=== PATIENT | female | born 1970 | race Caucasian/White ===

== ENCOUNTER 2016-07-31 14:07 | Emergency (ER) | payer MEDICARE, MEDICAID ==
--- NOTE | 2016-07-31 14:26 | Emergency Department Record ---
History of Present Illness - General Chief Complaint: Chest Pain Stated Complaint: CHEST PAIN Time Seen by Provider: 07/31/16 14:19 Source: Patient Mode of Arrival: Wheelchair Limitations: No limitations - History of Present Illness Initial Comments: 45 yo female presents to ED with a CC of "sharp" chest pain that began approximately 2-3 days ago. Patient reports that her pain has been constant for 2 days, and is improving. Patient denies fevers, chills, or cough symptoms , denies lower extremity swelling or calf-pain symptoms, denies previous history of DVT. Patient denies health problems other than HTN, does smoke. 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 MD Complaint: Chest pain Onset/Timin -: Days(s) Onset: Other Pain Location: Left chest Pain Radiation: LUE, Jaw/teeth Severity scale (1-10): 8 Quality: Sharp Consistency: Constant Improves With: Nothing Worsens With: Nothing Anginal Symptoms: Nausea Treatments Prior to Arrival: None - Related Data Home Medications Medication Instructions Recorded Confirmed Last Taken Alprazolam [Xanax] 0.25 mg PO Q8H PRN 01/16/16 07/31/16 1 Day Ago ~01/15/16 Aripiprazole [Abilify] 10 mg PO DAILY 01/16/16 07/31/16 07/31/16 Fluoxetine HCl [Prozac] 60 mg PO DAILY 01/16/16 07/31/16 07/31/16 Pregabalin [Lyrica] 150 mg PO BID 01/16/16 07/31/16 07/31/16 Allergies Allergy/AdvReac Type Severity Reaction Status Date / Time No Known Drug Allergies Allergy Verified 07/31/16 14:11 Travel Screening - Travel/Exposure Within Last 30 Days Have you traveled within the last 30 days?: No Review of Systems Constitutional: Denies: Chills, Fever, Malaise, Night sweats Eyes: Denies: Eye discharge, Eye pain ENT: Denies: Congestion, Ear pain, Epistaxis Respiratory: Denies: Cough, Dyspnea Cardiovascular: Reports: Chest pain. Denies: Dyspnea on exertion, Palpitations Endocrine: Denies: Fatigue, Heat or cold intolerance Gastrointestinal: Denies: Abdominal pain, Nausea, Vomiting Genitourinary: Denies: Dysuria, Hematuria, Incontinence Musculoskeletal: Denies: Arthralgia, Back pain, Gout, Joint swelling Skin: Denies: Bruising, Change in color Neurological: Denies: Abnormal gait, Confusion, Headache, Seizure Psychiatric: Denies: Anxiety Hematological/Lymphatic: Denies: Anemia, Blood Clots Past Medical History - SOCIAL HISTORY Smoking Status: Current every day smoker Alcohol Use: Occassional Drug Use: None - RESPIRATORY Hx Respiratory Disorders: No - CARDIOVASCULAR Hx Cardio Disorders: Yes Hx Abnormal EKG: Yes Hx Cardiac Cath: Yes (occluder placed 12/2013) Hx Hypertension: Yes Hx Irregular Heartbeat: Yes Comment:: murmur, septal defect - NEURO Hx Neuro Disorders: Yes Hx Headaches: Yes - GI Hx GI Disorders: No - Hx Genitourinary Disorders: No - ENDOCRINE Hx Endocrine Disorders: No - MUSCULOSKELETAL Hx Musculoskeletal Disorders: Yes Hx Arthritis: Yes Hx Fibromyalgia: Yes - PSYCH Hx Anxiety: Yes Hx Depression: Yes - HEMATOLOGY/ONCOLOGY Hx Hematology/Oncology Disorders: No Family Medical History Any Significant Family History?: Yes Hx Heart Disease: Mother *Heart Comment: mother with same Hx HTN: Grandparents Physical Exam - General General Appearance: Alert, Oriented x3, Cooperative, No acute distress Limitations: No limitations - Head Head exam: Atraumatic, Normocephalic, Normal inspection Head exam detail: negative: Abrasion, Contusion, Reyez's sign, General tenderness, Hematoma, Laceration - Eye Eye exam: Normal appearance. negative: Conjunctival injection, Periorbital swelling, Periorbital tenderness, Scleral icterus - ENT Ear exam: negative: Auricular hematoma, Auricular trauma Nasal Exam: negative: Active bleeding, Discharge, Dried blood, Foreign body Mouth exam: negative: Drooling, Laceration, Muffled voice, Tongue elevation - Neck Neck exam: Normal inspection. negative: Meningismus, Tenderness - Respiratory Respiratory exam: Normal lung sounds bilaterally. negative: Rales, Respiratory distress, Rhonchi, Stridor - Cardiovascular Cardiovascular Exam: Regular rate, Normal rhythm, Normal heart sounds - GI/Abdominal GI/Abdominal exam: Soft. negative: Rebound, Rigid, Tenderness - Rectal Rectal exam: Deferred - exam: Deferred - Extremities Extremities exam: Normal inspection. negative: Calf tenderness, Pedal edema, Tenderness - Back Back exam: Denies: CVA tenderness (R), CVA tenderness (L) - Neurological Neurological exam: Alert, Normal gait, Oriented X3 - Psychiatric Psychiatric exam: Flat affect, Normal mood - Skin Skin exam: Normal color. negative: Abrasion Type of lesion: negative: abrasion Course Vital Signs 07/31/16 14:08 Temperature 98.4 F Pulse Rate 97 H Respiratory 20 Rate Blood Pressure 141/100 Pulse Ox 78 L - Reevaluation(s) Reevaluation #1: 07/31/16 14:20 EKG: NSR 73 Normal axis, normal intervals No acute ST-T wave changes Reevaluation #2: 07/31/16 15:13 Labs reviewed and are grossly unremarkable for an acute process. Will plan for repeat Troponin in 4 hours. CXR reviewed and appears negative for any acute process. Will plan for 3-hour Troponin per HEART protocol to exclude acute myocardial injury. Patient resting comfortably and agrees with plan as discussed. Reevaluation #3: 07/31/16 17:48 Repeat Troponin resulted and is normal. Patient updated on result, and appears stable for discharge at this time with outpatient stress testing. Medical Decision Making - Lab Data Result diagrams: 07/31/16 14:10 07/31/16 14:10 Disposition Disposition: Discharge Clinical Impression: Chest pain Qualifiers: Chest pain type: unspecified Qualified Code(s): R07.9 - Chest pain, unspecified Disposition: Home, Self-Care Condition: (2) Stable Instructions: Chest Pain (ED) Additional Instructions: Return to ED if your symptoms worsen or if you have any concerns. Follow-up with Dr. Gamble in 1-3 days for further cardiac stress testing. Forms: Patient Portal Access Time of Disposition: 17:48
[2016-07-31] MEDS ORDERED: ASPIRIN 81 MG CHEWABLE TABLET PO ONE (14:29)
[2016-07-31 14:38] LABS: BASO % 0.6 % (0-6); EOS % 0.6 % (0-6); GRAN % 61.1 % (47-80); HEMATOCRIT 40.2 % (35.0-47.0); HEMOGLOBIN 13.8 gm/dl (11.6-16.0); LYMPH % 29.7 % (16-45); MEAN CELL VOLUME 101.5 fl (81-97); MEAN CORPUSCULAR HEMOGLOBIN 34.8 pg (27-33); MEAN CORPUSCULAR HGB CONC 34.3 g/dl (32-36); MEAN PLATELET VOLUME 10.4 fl (7.4-10.4); PLATELET COUNT 234 K/uL (130-400); RED BLOOD COUNT 3.96 M/uL (3.80-5.40); RED CELL DISTRIBUTION WIDTH 12.4 % (11.5-14.5)
[2016-07-31 14:54] LABS: ALB/GLOB RATIO 1.8 (1.1-1.8); ALBUMIN 4.4 gm/dL (3.5-5.0); ALKALINE PHOSPHATASE 85 U/L (38-126); ALT/SGPT 26 U/L (9-52); ANION GAP 6.9 (7-16); AST/SGOT 20 U/L (14-36); BILIRUBIN,TOTAL 0.62 mg/dL (0.2-1.3); BLOOD UREA NITROGEN 11 mg/dL (7-17); CARBON DIOXIDE 23.1 mmol/L (22-30); CREATINE PHOSPHOKINASE 105 U/L (30-135); CREATININE 0.8 mg/dL (0.52-1.04); EST GLOMERULAR FILTRATION RATE > 60 ml/min; GLUCOSE,RANDOM 92 mg/dL (70-110); TOTAL PROTEIN 6.9 gm/dL (6.3-8.2)
[2016-07-31 15:06] LABS: CKMB 2.4 ng/mL (0-4.3); TROPONIN I < 0.012 ng/mL (0.00-0.034)
== END 2016-07-31 18:03 | disposition home or self-care (01) ==
LOC: ER 14:07
DX: R07.9 Chest pain, unspecified (principal); R11.0 Nausea; R68.84 Jaw pain; R51 Headache; I10 Essential (primary) hypertension; F17.210 Nicotine dependence, cigarettes, uncomplicated
CPT/HCPCS: 71020; 80053; 82550; 82553; 84484; 85025; 85379; 93005; 93010; 99284

== ENCOUNTER 2017-12-12 12:16 | Emergency (ER) | payer MEDICARE, MEDICAID ==
[2017-12-12] MEDS ORDERED: ASPIRIN 81 MG CHEWABLE TABLET PO ONE (12:22)
[2017-12-12 12:31] LABS: BASO % 0.7 % (0-6); EOS % 0.3 % (0-6); GRAN % 56.8 % (47-80); HEMATOCRIT 42.7 % (35.0-47.0); HEMOGLOBIN 14.4 gm/dl (11.6-16.0); LYMPH % 32.8 % (16-45); MEAN CELL VOLUME 102.9 fl (81-97); MEAN CORPUSCULAR HEMOGLOBIN 34.7 pg (27-33); MEAN CORPUSCULAR HGB CONC 33.7 g/dl (32-36); MEAN PLATELET VOLUME 9.7 fl (7.4-10.4); MONO % 9.4 % (0-9); PLATELET COUNT 291 K/uL (130-400); RED BLOOD COUNT 4.15 M/uL (3.80-5.40); RED CELL DISTRIBUTION WIDTH 13.6 % (11.5-14.5); WHITE BLOOD COUNT W/O DIFF 5.8 K/uL (4.2-12.2)
[2017-12-12] MEDS ORDERED: NITROGLYCERIN 0.4MG SL TABLET #25 BTL SL ONE (12:35)
[2017-12-12 12:41] LABS: BLOOD UREA NITROGEN 9 mg/dL (6-20); CREATININE 0.6 mg/dL (0.5-0.9); EST GLOMERULAR FILTRATION RATE > 60 mL/min
[2017-12-12 12:44] LABS: GLUCOSE,RANDOM 121 mg/dL (74-109)
[2017-12-12 12:47] LABS: CREATINE PHOSPHOKINASE 91 U/L (26-192)
[2017-12-12] MEDS: NITROGLYCERIN 0.4MG SL TABLET #25 BTL SL PRN ×2 (12:48→12:55)
--- NOTE | 2017-12-12 12:48 | Emergency Department Record ---
History of Present Illness - General Chief Complaint: Chest Pain Stated Complaint: CHEST PAIN Time Seen by Provider: 12/12/17 12:18 Source: Patient Mode of Arrival: Ambulatory Limitations: No limitations - History of Present Illness Initial Comments: pt has had constant cp since 7am that is sharp and radiates to her l arm. she has nausea. she also had cp yesterday that was worse. MD Complaint: Chest pain Onset/Timin -: Hour(s) Onset: Awoke with symptoms Pain Location: Left chest Severity scale (1-10): 7 Quality: Heaviness, Sharp Consistency: Constant Improves With: Nothing Worsens With: Nothing Anginal Symptoms: Nausea Treatments Prior to Arrival: None - Related Data Home Medications Medication Instructions Recorded Confirmed Last Taken Amlodipine Besylate [Norvasc] 5 mg PO DAILY 12/12/17 12/12/17 12/12/17 Losartan Potassium 50 mg PO DAILY 12/12/17 12/12/17 12/12/17 Allergies Allergy/AdvReac Type Severity Reaction Status Date / Time No Known Drug Allergies Allergy Verified 07/31/16 14:11 Travel Screening - Travel/Exposure Within Last 30 Days Have you traveled within the last 30 days?: No - Travel/Exposure Within Last Year Have you traveled outside the [place] in the last year?: No - Additonal Travel Details Have you been exposed to anyone with a communicable illness?: No - Travel Symptoms Symptom Screening: None Review of Systems Reviewed: No additional complaints except as noted below Constitutional: Reports: As per HPI. Denies: Chills, Fever, Malaise, Night sweats, Weakness, Weight change Eyes: Reports: As per HPI. Denies: Eye discharge, Eye pain, Photophobia, Vision change ENT: Reports: As per HPI. Denies: Congestion, Dental pain, Ear pain, Epistaxis , Hearing loss, Throat pain Respiratory: Reports: As per HPI. Denies: Cough, Dyspnea, Hemoptysis, Stridor, Wheezes Cardiovascular: Reports: As per HPI. Denies: Arrhythmia, Chest pain, Dyspnea on exertion, Edema, Murmurs, Orthopnea, Palpitations, Paroxysmal nocturnal dyspnea, Rheumatic Fever, Syncope Endocrine: Reports: As per HPI. Denies: Fatigue, Heat or cold intolerance, Polydipsia, Polyuria Gastrointestinal: Reports: As per HPI. Denies: Abdominal pain, Constipation, Diarrhea, Hematemesis, Hematochezia, Melena, Nausea, Vomiting Genitourinary: Reports: As per HPI. Denies: Abnormal menses, Discharge, Dyspareunia, Dysuria, Frequency, Hematuria, Incontinence, Retention, Urgency Musculoskeletal: Reports: As per HPI. Denies: Arthralgia, Back pain, Gout, Joint swelling, Myalgia, Neck pain Skin: Reports: As per HPI. Denies: Bruising, Change in color, Change in hair/ nails, Lesions, Pruritus, Rash Neurological: Reports: As per HPI. Denies: Abnormal gait, Confusion, Headache, Numbness, Paresthesias, Seizure, Tingling, Tremors, Vertigo, Weakness Psychiatric: Reports: As per HPI. Denies: Anxiety, Auditory hallucinations, Depression, Homicidal thoughts, Suicidal thoughts, Visual hallucinations Hematological/Lymphatic: Reports: As per HPI. Denies: Anemia, Blood Clots, Easy bleeding, Easy bruising, Swollen glands Past Medical History - SOCIAL HISTORY Smoking Status: Light tobacco smoker (<10/day) Alcohol Use: Occasional Drug Use: Rare Drug Use Detail:: Marijuana - RESPIRATORY Hx Respiratory Disorders: No - CARDIOVASCULAR Hx Cardio Disorders: Yes Hx Abnormal EKG: Yes Hx Cardiac Cath: Yes (occluder placed 12/2013) Hx Hypertension: Yes Hx Irregular Heartbeat: Yes Comment:: murmur, septal defect - NEURO Hx Neuro Disorders: Yes Hx Headaches: Yes - GI Hx GI Disorders: No - Hx Genitourinary Disorders: No - ENDOCRINE Hx Endocrine Disorders: No Hx Diabetes: No Hx Thyroid Disease: No - MUSCULOSKELETAL Hx Musculoskeletal Disorders: Yes Hx Arthritis: Yes Hx Fibromyalgia: Yes - PSYCH Hx Psych Problems: Yes Hx Anxiety: Yes Hx Depression: Yes - HEMATOLOGY/ONCOLOGY Hx Hematology/Oncology Disorders: No Hx Anemia: No Hx Blood Disorders: No Hx Bruising: No Hx Cancer: No Family Medical History Any Significant Family History?: No Hx Heart Disease: Mother *Heart Comment: mother with same Hx HTN: Grandparents Physical Exam - General General Appearance: Alert, Oriented x3, Cooperative, Mild distress - Head Head exam: Normal inspection - Eye Eye exam: Normal appearance, PERRL, EOMI Pupils: Normal accommodation - ENT ENT exam: Normal exam, Mucous membranes moist, Normal external ear exam, Normal orophraynx Ear exam: Normal external inspection. negative: External canal tenderness Nasal Exam: Normal inspection. negative: Discharge, Sinus tenderness Mouth exam: Normal external inspection, Tongue normal Teeth exam: Normal inspection. negative: Dental caries Throat exam: Normal inspection. negative: Tonsillar erythema, Tonsillar exudate - Neck Neck exam: Normal inspection, Full ROM. negative: Tenderness - Respiratory Respiratory exam: Normal lung sounds bilaterally. negative: Respiratory distress - Cardiovascular Cardiovascular Exam: Regular rate, Normal rhythm, Normal heart sounds - GI/Abdominal GI/Abdominal exam: Soft, Normal bowel sounds. negative: Tenderness - Rectal Rectal exam: Deferred - exam: Deferred - Extremities Extremities exam: Normal inspection, Full ROM, Normal capillary refill. negative: Tenderness - Back Back exam: Reports: Normal inspection, Full ROM. Denies: Muscle spasm, Rash noted, Tenderness - Neurological Neurological exam: Alert, CN II-XII intact, Normal gait, Oriented X3 - Psychiatric Psychiatric exam: Normal affect, Normal mood - Skin Skin exam: Dry, Intact, Normal color, Warm Course Vital Signs 12/12/17 12/12/17 12:27 12:42 Temperature 98.5 F Pulse Rate [ 85 85 Pulse Ox Probe] Respiratory 16 Rate Blood Pressure 140/98 120/98 [Right Arm] Pulse Ox 100 99 - Reevaluation(s) Reevaluation #1: 12/12/17 15:27 ntg relieved pain Reevaluation #2: 12/12/17 15:27 d/w dr cleary Medical Decision Making - Lab Data Result diagrams: 12/12/17 12:20 12/12/17 12:20 Lab Results 12/12/17 Range/Units 12:20 WBC 5.8 (4.2-12.2) K/uL RBC 4.15 (3.80-5.40) M/uL Hgb 14.4 (11.6-16.0) gm/dl Hct 42.7 (35.0-47.0) % MCV 102.9 H (81-97) fl MCH 34.7 H (27-33) pg MCHC 33.7 (32-36) g/dl RDW 13.6 (11.5-14.5) % Plt Count 291 (130-400) K/uL MPV 9.7 (7.4-10.4) fl Gran % 56.8 (47-80) % Lymphocytes % 32.8 (16-45) % Monocytes % 9.4 H (0-9) % Eosinophils % 0.3 (0-6) % Basophils % 0.7 (0-6) % Disposition Disposition: Transfer Clinical Impression: Chest pain Qualifiers: Chest pain type: unspecified Qualified Code(s): R07.9 - Chest pain, unspecified Disposition: Acute Care Hospital Transfer Transfer To: [facility] Reason For Transfer: cp, needs commercial insurance underwriter Accepting Physician: dr jack Time Discussed w/Accepting Physician: 15:56 Forms: Patient Portal Access Quality - Quality Measures Quality Measures: N/A - Blood Pressure Screening Does Patient Have Any of the Following: No Blood Pressure Classification: Hypertensive Reading Systolic Measurement: 130 Diastolic Measurement: 106 Screening for High Blood Pressure: < Pre-Hypertensive BP, F/U Documented > [ G8950] Pre-Hypertensive Follow-up Interventions: Follow-up with rescreen every year.
[2017-12-12 12:49] LABS: CKMB 3.2 ng/mL (<3.77)
[2017-12-12] MEDS ORDERED: ONDANSETRON HCL IV 4 MG/2 ML VIAL IVP ONE (14:26)
== END 2017-12-12 17:12 | disposition short-term general hospital (02) ==
LOC: ER 12:16
DX: R07.9 Chest pain, unspecified (principal); I10 Essential (primary) hypertension; F17.210 Nicotine dependence, cigarettes, uncomplicated
CPT/HCPCS: 71275; 80048; 82550; 82553; 84484; 85025; 85379; 93005; 93010; 93041; 96374; 99285; J2405

== ENCOUNTER 2018-06-12 15:30 | Emergency (ER) | payer MEDICARE, MEDICAID ==
[2018-06-12 16:33] LABS: HEMATOCRIT 41.5 % (35.0-47.0); MEAN CORPUSCULAR HEMOGLOBIN 34.1 pg (27-33); MEAN CORPUSCULAR HGB CONC 33.7 g/dl (32-36); MEAN PLATELET VOLUME 9.8 fl (7.4-10.4); PLATELET COUNT 229 K/uL (130-400); RED BLOOD COUNT 4.11 M/uL (3.80-5.40); RED CELL DISTRIBUTION WIDTH 13.3 % (11.5-14.5)
--- NOTE | 2018-06-12 16:39 | Emergency Department Record ---
History of Present Illness - General Stated complaint: VOMITING/FEVER Time Seen by Provider: 06/12/18 15:50 Source: Patient, RN notes reviewed Mode of Arrival: Wheelchair - History of Present Illness Initial comments: vomitng for 2 days and no diarrhea and left lower quad pain and left flank pain and she says at times it hurts on both sides Onset/Timin -: Hour(s) Location: Generalized, LUE, RUE, LLE, RLE Severity: Moderate Severity scale (1-10): 8 Quality: Aching Consistency: Constant Improves with: Medication Worsens with: None Associated Symptoms: Nausea/vomiting, Myalgias - [place] Coma Scale Eye Response: (4) Open spontaneously Motor Response: (6) Obeys commands Verbal Response: (5) Oriented [place] Total: 15 - Related Data Home Medications Medication Instructions Recorded Confirmed Last Taken Cyclobenzaprine HCl [Flexeril] 5 mg PO ASDIR 06/12/18 06/12/18 Unknown Gabapentin 300 mg PO BID 06/12/18 06/12/18 06/11/18 Zolpidem Tartrate 10 mg PO QHS PRN 06/12/18 06/12/18 Unknown Previous Rx's Medication Instructions Recorded Hydrocodone/Acetaminophen [[place] 1 each PO Q6HR #12 tablet 06/12/18 5-325 Tablet] Ibuprofen [Motrin 600Mg] 600 mg PO Q6H #30 tablet 06/12/18 Ondansetron HCl [Zofran] 4 mg PO Q6HR #20 tablet 06/12/18 Allergies Allergy/AdvReac Type Severity Reaction Status Date / Time No Known Drug Allergies Allergy Verified 06/12/18 15:39 Travel Screening - Travel/Exposure Within Last 30 Days Have you traveled within the last 30 days?: No - Travel/Exposure Within Last Year Have you traveled outside the [place] in the last year?: No - Additonal Travel Details Have you been exposed to anyone with a communicable illness?: No - Travel Symptoms Symptom Screening: None Review of Systems Reviewed: No additional complaints except as noted below Constitutional: Reports: As per HPI. Denies: Chills, Fever, Malaise, Night sweats, Weakness, Weight change Eyes: Reports: As per HPI. Denies: Eye discharge, Eye pain, Photophobia, Vision change ENT: Reports: As per HPI. Denies: Congestion, Dental pain, Ear pain, Epistaxis , Hearing loss, Throat pain Respiratory: Reports: As per HPI. Denies: Cough, Dyspnea, Hemoptysis, Stridor, Wheezes Cardiovascular: Reports: As per HPI. Denies: Arrhythmia, Chest pain, Dyspnea on exertion, Edema, Murmurs, Orthopnea, Palpitations, Paroxysmal nocturnal dyspnea, Rheumatic Fever, Syncope Endocrine: Reports: As per HPI. Denies: Fatigue, Heat or cold intolerance, Polydipsia, Polyuria Gastrointestinal: Reports: As per HPI, Abdominal pain, Vomiting. Denies: Constipation, Diarrhea, Hematemesis, Hematochezia, Melena, Nausea Genitourinary: Reports: As per HPI. Denies: Abnormal menses, Discharge, Dyspareunia, Dysuria, Frequency, Hematuria, Incontinence, Retention, Urgency Musculoskeletal: Reports: As per HPI. Denies: Arthralgia, Back pain, Gout, Joint swelling, Myalgia, Neck pain Skin: Reports: As per HPI. Denies: Bruising, Change in color, Change in hair/ nails, Lesions, Pruritus, Rash Neurological: Reports: As per HPI. Denies: Abnormal gait, Confusion, Headache, Numbness, Paresthesias, Seizure, Tingling, Tremors, Vertigo, Weakness Psychiatric: Reports: As per HPI. Denies: Anxiety, Auditory hallucinations, Depression, Homicidal thoughts, Suicidal thoughts, Visual hallucinations Hematological/Lymphatic: Reports: As per HPI. Denies: Anemia, Blood Clots, Easy bleeding, Easy bruising, Swollen glands Past Medical History - SOCIAL HISTORY Smoking Status: Light tobacco smoker (<10/day) Alcohol Use: Occasional Drug Use: Occasional Drug Use Detail:: Marijuana - RESPIRATORY Hx Respiratory Disorders: No - CARDIOVASCULAR Hx Cardio Disorders: Yes Hx Abnormal EKG: Yes Hx Cardiac Cath: Yes (occluder placed 12/2013) Hx Hypertension: Yes Hx Irregular Heartbeat: Yes Comment:: murmur, septal defect - NEURO Hx Neuro Disorders: Yes Hx Headaches: Yes - GI Hx GI Disorders: No - Hx Genitourinary Disorders: No - ENDOCRINE Hx Endocrine Disorders: No Hx Diabetes: No Hx Thyroid Disease: No - MUSCULOSKELETAL Hx Musculoskeletal Disorders: Yes Hx Arthritis: Yes Hx Fibromyalgia: Yes - PSYCH Hx Psych Problems: Yes Hx Anxiety: Yes Hx Depression: Yes - HEMATOLOGY/ONCOLOGY Hx Hematology/Oncology Disorders: No Hx Anemia: No Hx Blood Disorders: No Hx Bruising: No Hx Cancer: No Family Medical History Any Significant Family History?: Yes Hx Heart Disease: Mother *Heart Comment: mother with same Hx HTN: Grandparents Physical Exam - General General Appearance: Alert, Oriented x3, Cooperative, No acute distress - Head Head exam: Normal inspection - Eye Eye exam: Normal appearance, PERRL Pupils: Normal accommodation - ENT ENT exam: Normal exam, Mucous membranes moist, Normal external ear exam, Normal orophraynx, TM's normal bilaterally Ear exam: Normal external inspection. negative: External canal tenderness Nasal Exam: Normal inspection. negative: Discharge, Sinus tenderness Mouth exam: Normal external inspection, Tongue normal Teeth exam: Normal inspection. negative: Dental caries Throat exam: Normal inspection. negative: Tonsillar erythema, Tonsillar exudate - Neck Neck exam: Normal inspection, Full ROM. negative: Tenderness - Respiratory Respiratory exam: Normal lung sounds bilaterally. negative: Respiratory distress - Cardiovascular Cardiovascular Exam: Regular rate, Normal rhythm, Normal heart sounds - GI/Abdominal GI/Abdominal exam: Soft, Normal bowel sounds, Tenderness (right lower quad pain) - Rectal Rectal exam: Deferred - exam: Deferred - Extremities Extremities exam: Normal inspection, Full ROM, Normal capillary refill. negative: Tenderness - Back Back exam: Reports: Normal inspection, Full ROM. Denies: Muscle spasm, Rash noted, Tenderness - Neurological Neurological exam: Alert, Normal gait, Oriented X3, Reflexes normal - Psychiatric Psychiatric exam: Normal affect, Normal mood - Skin Skin exam: Dry, Intact, Normal color, Warm Course Vital Signs 06/12/18 15:45 Temperature 97.8 F Pulse Rate 104 H Respiratory 20 Rate Blood Pressure 147/99 Pulse Ox 99 Medical Decision Making - Data Complexity MDM Data: Labs Ordered and/or Reviewed (WBC 20,600), X-Ray Ordered and/or Reviewed (CT of abd bilateral kidney stones and left sided stone 5 mm and obstructing in the proxiaml ureter) - Lab Data Result diagrams: 06/12/18 16:10 06/12/18 16:10 Disposition Clinical Impression: Kidney stone on left side Abdominal pain Qualifiers: Abdominal location: left upper quadrant Qualified Code(s): R10.12 - Left upper quadrant pain Vomiting Qualifiers: Vomiting type: unspecified Vomiting Intractability: non-intractable Nausea presence: with nausea Qualified Code(s): R11.2 - Nausea with vomiting, unspecified Hydronephrosis Qualifiers: Hydronephrosis type: with ureteral calculous obstruction Qualified Code(s): N13.2 - Hydronephrosis with renal and ureteral calculous obstruction Disposition: Home, Self-Care Condition: (1) Good Instructions: Kidney Stones (ED), Renal Colic (ED), How to Strain Your Urine ( ED) Additional Instructions: follow up with Dr Scruggs in [place] and they will work her in. strain urine Prescriptions: Hydrocodone/Acetaminophen [[place] 5-325 Tablet] 1 each PO Q6HR #12 tablet Ondansetron HCl [Zofran] 4 mg PO Q6HR #20 tablet Ibuprofen [Motrin 600Mg] 600 mg PO Q6H #30 tablet Quality - Quality Measures Quality Measures: N/A - Blood Pressure Screening Does Patient Have Any of the Following: No Blood Pressure Classification: Hypertensive Reading Systolic Measurement: 147 Diastolic Measurement: 99 Screening for High Blood Pressure: < First Hypertensive BP, F/U Documented > [ G8950] First Hypertensive Follow-up Interventions: Referral to alternative/primary care provider.
[2018-06-12 16:42] LABS: WHITE BLOOD COUNT W/O DIFF 20.6 K/uL (4.2-12.2)
[2018-06-12 16:43] LABS: INFLUENZA A NEGATIVE (NEGATIVE); INFLUENZA B NEGATIVE (NEGATIVE)
[2018-06-12 16:44] LABS: BLOOD UREA NITROGEN 16 mg/dL (6-20); CREATININE 0.9 mg/dL (0.5-0.9); EST GLOMERULAR FILTRATION RATE > 60 mL/min
[2018-06-12 16:45] LABS: TOTAL PROTEIN 7.3 g/dL (6.6-8.7)
[2018-06-12 16:47] LABS: GLUCOSE,RANDOM 135 mg/dL (74-109)
[2018-06-12 16:49] LABS: ALB/GLOB RATIO 1.4 (1.1-1.8); ALBUMIN 4.2 g/dL (4.0-5.0); ALT/SGPT 10 U/L (<33); AST/SGOT 12 U/L (10.0-35.0)
[2018-06-12 16:50] LABS: ALKALINE PHOSPHATASE 89 U/L (35-104)
[2018-06-12] MEDS ORDERED: ONDANSETRON HCL IV 4 MG/2 ML VIAL IVP ONE (17:24)
[2018-06-12] MEDS ORDERED: KETOROLAC 30 MG/ML VIAL IVP ONE (17:47)
[2018-06-12 17:57] LABS: URINE APPEARANCE CLOUDY; URINE BILIRUBIN SMALL (NEGATIVE); URINE BLOOD MODERATE (NEGATIVE); URINE COLOR YELLOW; URINE GLUCOSE (UA) NEGATIVE (NEGATIVE); URINE KETONE 40 mg/dL (NEGATIVE); URINE LEUKOCYTE ESTERASE TRACE (NEGATIVE); URINE NITRITE NEGATIVE (NEGATIVE); URINE UROBILINOGEN 0.2 E.U./dL (0.20 - 1.00)
[2018-06-12 18:07] LABS: URINE SQUAMOUS EPITHELIAL CELL 16 - 20 /hpf
[2018-06-12 18:08] LABS: URINE BACTERIA 2+
[2018-06-12] MEDS ORDERED: ACETAMINOPHEN 500 MG TABLET PO ONE (19:00)
--- NOTE | 2018-06-14 12:32 | CT SCAN REPORT ---
EXAM: CT OF THE ABDOMEN AND PELVIS WITHOUT CONTRAST HISTORY: FLANK PAIN, FEVER, DYSURIA. TECHNIQUE: Noncontrast CT of the abdomen and pelvis was obtained. FINDINGS: The lung bases are unremarkable. The liver is normal in size and shape. The gallbladder is normal. The spleen and pancreas are within normal limits. No adrenal lesions are seen. There are bilateral intrarenal calculi present. The right kidney demonstrates no hydronephrosis or evidence of urinary obstruction. There is no evidence of ureteral calculus or stone within the bladder. On the left there is moderate obstruction secondary to a 5 mm calculus in the proximal left ureter. Beyond this ureteral calculus, the left ureter is unremarkable. The stomach and small bowel are unremarkable. The colon is normal. The appendix is within normal limits. There are no pelvic masses. IMPRESSION: MULTIPLE INTRARENAL CALCULI. MODERATELY OBSTRUCTING LEFT PROXIMAL URETERAL CALCULUS. JOB NUMBER: [id number] [facility]
== END 2018-06-12 19:23 | disposition home or self-care (01) ==
LOC: ER 15:30
DX: N13.2 Hydronephrosis with renal and ureteral calculous obstruction (principal); R10.12 Left upper quadrant pain; R11.2 Nausea with vomiting, unspecified; R19.7 Diarrhea, unspecified; I10 Essential (primary) hypertension; F17.210 Nicotine dependence, cigarettes, uncomplicated
CPT/HCPCS: 99284 ×2; 96374; 96375; 83605; 80053; 81001; 87400; 85027; 74176; J1885; J2405

== ENCOUNTER 2019-02-22 10:34 | Emergency (ER) | payer MEDICARE, MEDICAID ==
--- NOTE | 2019-02-22 10:47 | Emergency Department Record ---
History of Present Illness - General Stated complaint: RT FOOT INJURY Time Seen by Provider: 02/22/19 10:43 Source: Patient Mode of Arrival: Ambulatory Limitations: No limitations - History of Present Illness Initial comments: 48 yo female presents with right foot pain for two weeks. She does not recall any specific injury. The pain is in the mid foot. No warmth, redness or swelling. No calf pain. No rashes. Years ago she did have a fracture. No history of surgery of the foot. Not a diabetic. 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 Complaint: Extremity pain, Joint pain -: Week(s) (2) Location: Right -: Yes Arthralgia Radiation: Distal Quality: Aching Consistency: Constant Improves with: Elevation, Immobilization Worsens with: Palpation, Walking Associated Symptoms: Denies other symptoms - Related Data Allergies Allergy/AdvReac Type Severity Reaction Status Date / Time acetaminophen [From [facility]] Allergy facial rash Verified 02/22/19 10:53 Review of Systems Constitutional: Denies: Chills, Fever, Malaise, Weakness Eyes: Denies: Eye discharge ENT: Denies: Congestion, Throat pain Respiratory: Denies: Cough, Dyspnea Cardiovascular: Denies: Chest pain, Palpitations, Syncope Endocrine: Denies: Fatigue Gastrointestinal: Denies: Abdominal pain, Diarrhea, Nausea, Vomiting Genitourinary: Denies: Dysuria, Urgency Musculoskeletal: Reports: As per HPI, Arthralgia Skin: Denies: Bruising, Change in color, Rash Neurological: Denies: Headache Psychiatric: Denies: Anxiety Hematological/Lymphatic: Denies: Easy bleeding, Easy bruising Past Medical History - SOCIAL HISTORY Smoking Status: Light tobacco smoker (<10/day) Drug Use: Occasional Drug Use Detail:: Marijuana - RESPIRATORY Hx Respiratory Disorders: No - CARDIOVASCULAR Hx Cardio Disorders: Yes Hx Abnormal EKG: Yes Hx Cardiac Cath: Yes (occluder placed 12/2013) Hx Hypertension: Yes Hx Irregular Heartbeat: Yes Comment:: murmur, septal defect - NEURO Hx Neuro Disorders: Yes Hx Headaches: Yes - GI Hx GI Disorders: No - Hx Genitourinary Disorders: No - ENDOCRINE Hx Endocrine Disorders: No Hx Diabetes: No Hx Thyroid Disease: No - MUSCULOSKELETAL Hx Musculoskeletal Disorders: Yes Hx Arthritis: Yes Hx Fibromyalgia: Yes - PSYCH Hx Psych Problems: Yes Hx Anxiety: Yes Hx Depression: Yes - HEMATOLOGY/ONCOLOGY Hx Hematology/Oncology Disorders: No Hx Anemia: No Hx Blood Disorders: No Hx Bruising: No Hx Cancer: No Family Medical History Hx Heart Disease: Mother *Heart Comment: mother with same Hx HTN: Grandparents Physical Exam - General General Appearance: Alert, Oriented x3, Cooperative, No acute distress Limitations: No limitations - Head Head exam: Atraumatic, Normal inspection - Eye Eye exam: Normal appearance - ENT ENT exam: Normal exam Ear exam: Normal external inspection Nasal Exam: Normal inspection Mouth exam: Normal external inspection - Neck Neck exam: Normal inspection - Cardiovascular Peripheral Pulses: 2+: Radial (R) - Extremities Extremities exam: Normal inspection, Full ROM, Normal capillary refill, Tenderness. negative: Calf tenderness, Pedal edema Image of Feet: 1 - normal inspection, tender, no swelling, no redness - Neurological Neurological exam: Alert, Oriented X3 - Psychiatric Psychiatric exam: Normal affect, Normal mood - Skin Skin exam: Dry, Intact, Normal color, Warm Course - Reevaluation(s) Reevaluation #1: 02/22/19 13:02 The final XR read was negative for acute process Disposition Disposition: Discharge Clinical Impression: Sprain of foot, right Qualifiers: Encounter type: initial encounter Qualified Code(s): S93.601A - Unspecified sprain of right foot, initial encounter Disposition: Home, Self-Care Condition: (1) Good Instructions: Foot Sprain (ED) Additional Instructions: Ice the foot this weekend 3-4 times You may use Motrin 400mg every 6 hours for pain Call Dr Fletcher to recheck the foot first of the week If the pain continues consider additional testing or referral to the Podiatry Clinic at [facility] Referrals: Cedric Heck D.P.M. [DOCTOR OF PODIATRY MEDICINE] - Forms: Patient Portal Access Time of Disposition: 13:02 Quality - Quality Measures Quality Measures: N/A - Blood Pressure Screening Does Patient Have Any of the Following: No Blood Pressure Classification: Hypertensive Reading Systolic Measurement: 126 Diastolic Measurement: 96 Screening for High Blood Pressure: < Pre-Hypertensive BP, F/U Documented > [[id number]] Pre-Hypertensive Follow-up Interventions: Referral to alternative/primary care provider.
--- NOTE | 2019-02-22 12:00 | RADIOLOGY REPORT ---
EXAMINATION: Right Foot, Minimum Three Views EXAM DATE: 02/22/2019 11:11 AM TECHNIQUE: AP, lateral, and oblique INDICATION: right foot pain 2 weeks COMPARISON: None ENCOUNTER: Initial FINDINGS: There is no bone or joint abnormality. IMPRESSION: No significant abnormality seen. Dictated by: Ish Michelle MD on 02/22/2019 11:53 AM. .
== END 2019-02-22 11:59 | disposition home or self-care (01) ==
LOC: ER 10:34
DX: S93.601A Unspecified sprain of right foot, initial encounter (principal); X50.0XXA Overexertion from strenuous movement or load, initial encounter; I10 Essential (primary) hypertension; F17.210 Nicotine dependence, cigarettes, uncomplicated
CPT/HCPCS: 99283